=== PATIENT | male | born 1965 | race Caucasian/White ===

== ENCOUNTER 2018-04-09 05:56 | Outpatient (CLI) | payer BC ==
[~2018-04-09] VITALS: Ht 177.8 cm; Wt 93.9 kg
== END 2018-04-09 10:34 ==
LOC: PREOP 05:56
PROVIDERS: ATTEND Internal Medicine
DX: Z01.818 Encounter for other preprocedural examination (principal); Z12.11 Encounter for screening for malignant neoplasm of colon

== ENCOUNTER 2018-04-12 07:31 | Day surgery (SDC) | payer BC ==
--- NOTE | 2018-04-11 06:45 | HISTORY AND PHYSICAL ---
DATE OF SERVICE: COLONOSCOPY H AND P. HISTORY OF PRESENT ILLNESS: He did not have any kind of medical record number, so I suspect he has not been seen here before but the patient is a 52-year-old white male, referred by Dr. Odom, for his first screening colonoscopy. He is deemed to be of average risk as he reports no history of GI bleeding and has no family history for colon cancer that he is aware of. He reports that he feels well and is taking no medication. PAST SURGICAL HISTORY: He has no past surgical history. FAMILY HISTORY: Father of complications from an [place] at the age of 60. Mother is still living at the age of 84, has had stroke. SOCIAL HISTORY: He is employed with history of moderate alcohol consumption and no past smoking history. 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 PHYSICAL EXAMINATION: GENERAL: Reveals a well-appearing white male, who appears to be in no acute distress. VITAL SIGNS: Initial blood pressure was 140/100, repeated 130/90. HEENT: Unremarkable. Sclerae are nonicteric. NECK: Revealed no JVD, adenopathy or bruits. CHEST: Clear to auscultation. Oral cavity reveals a Mallampati class 3 oropharyngeal configuration without erythema or exudate. CARDIOVASCULAR: Reveals a regular rate and rhythm without murmur, S3 or S4. ABDOMEN: Soft, supple without mass, organomegaly or tenderness. Bowel sounds are positive. No tenderness is noted. EXTREMITIES: Reveal no cyanosis, clubbing or edema. ASSESSMENT: The patient was set up for screening colonoscopy on 04/12. Prep instructions with Suprep kit were given and questions were answered. I thank you for the referral of this pleasant gentleman. Job ID: [id number] DocumentID: [id number] Dictated Date: 04/05/2018 11:19:55 Longshore Equipment Operator Date: 04/05/2018 11:48:20 Dictated By: MARLENA BARRY MD
[~2018-04-12] VITALS: Ht 177.8 cm; Wt 93.9 kg
[2018-04-12] MEDS ORDERED: D5 LR IV SOLUTION 1,000 ML IV ONE (07:38)
[2018-04-12] MEDS ORDERED: D5 LR IV SOLUTION 1,000 ML IV STA (07:42)
[2018-04-12] MEDS ORDERED: LIDOCAINE JELLY 2% (XYLOCAINE) 5 ML TUBE MM PRN (07:45)
[2018-04-12] MEDS ORDERED: MIDAZOLAM 2 MG/2 ML (VERSED) VIAL IVP PRN (07:45)
[2018-04-12 07:51] VITALS: BP 165/96
--- NOTE | 2018-04-12 08:10 | Pre-Op Note & Conscious Sedat ---
Pre-Operative Progress Note H&P Reviewed The H&P was reviewed, patient examined and no changes noted. Date H&P Reviewed: Apr 12, 2018 Time H&P Reviewed: 08:10 Conscious Sedation Pre-Proced ASA Class: 2 Airway Mallampati Classification: ([place] appropriate class) I. II. III, IV Lungs Heart ASA score ASA 1: a normal healthy patient ASA 2: a patient with a mild systemic disease (mid diabetes, controlled hypertension, obesity ASA 3: a patient with a severe systemic disease that limits activity (angina , COPD, prior Myocardial infarction) ASA 4: a patient with an incapacitating disease that is a constant threat to life (CHF, renal failure) ASA 5: a moribund patient not expected to survive 24 hrs. (ruptured aneurysm) ASA 6: a declared brain patient whose organs are being harvested. For emergent operations, add the letter E after the classification Grade 3 Sedation Plan: Analgesia, Amnesia, Plan communicated to team members, Discussed options with patient/fam, Discussed risks with patient/fam Note The patient is an appropriate candidate to undergo the planned procedure, sedation, and anesthesia. The patient immediately re-assessed prior to indication. MARLENA BARRY MD Apr 12, 2018 08:10
[2018-04-12] MEDS ORDERED: LIDOCAINE JELLY 2% (XYLOCAINE) 5 ML TUBE ONE (08:27)
[2018-04-12] MEDS ORDERED: MIDAZOLAM 2 MG/2 ML (VERSED) VIAL ONE (08:27)
[2018-04-12] MEDS ORDERED: fentaNYL INJECTION 100 MCG/2 ML AMP ONE (08:27)
[2018-04-12] MEDS: fentaNYL INJECTION 100 MCG/2 ML AMP IVP PRN ×2 (08:39→08:43)
[2018-04-12 09:30] VITALS: BP 131/90
[2018-04-12 09:45] VITALS: BP 130/94
[2018-04-12 09:50] VITALS: BP 130/94
--- NOTE | 2018-04-12 15:37 | OPERATIVE REPORT ---
DATE OF SERVICE: 04/12/2018 COLONOSCOPY SUMMARY INDICATION FOR THE PROCEDURE: Screening colonoscopy. The patient was placed in left lateral decubitus position. Prior to doing the colonoscopy, digital rectal evaluation was performed. Anal sphincter tone was normal and the perianal reflex is intact. The prostate is mildly enlarged, anodular and nontender to digital inspection. Digital inspection of the anal canal and distal rectal vault were unremarkable. The colonoscope was then inserted into the rectum under direct visualization advanced to the cecum. The cecum was identified by identification of the ileocecal valve, cecal strap and appendiceal orifice. Photographic documentation was obtained. Careful inspection was made as the colonoscope was withdrawn. The patient tolerated the procedure well. FINDINGS: There is no evidence for internal or external hemorrhoids. The rectum was unremarkable. A diminutive 2 mm sessile distal sigmoid polyp was present and it was subsequently photographed and biopsied and ablated with no subsequent blood loss. Remainder of the sigmoid colon, descending colon, splenic flexure, transverse colon, hepatic flexure, ascending colon and cecum were unremarkable. ASSESSMENT: 1. One diminutive distal sigmoid polyp was present. It was ablated and submitted for histopathology with no blood loss. This was otherwise normal colonoscopy of the cecum. We would advocate consideration for repeat screening colonoscopy in 10 years as the patient reports no family history for colon cancer. 2. Digital rectal evaluation is compatible with mild benign prostatic hypertrophy. Job ID: [id number] DocumentID: [id number] Dictated Date: 04/12/2018 09:17:43 River Tester Date: 04/12/2018 15:36:47 Dictated By: MARLENA BARRY MD [facility]
== END 2018-04-12 09:50 | disposition home or self-care (01) ==
LOC: ENDO 07:31
PROVIDERS: ATTEND Internal Medicine
DX: Z12.11 Encounter for screening for malignant neoplasm of colon (principal); K63.5 Polyp of colon; N40.0 Benign prostatic hyperplasia without lower urinary tract symptoms
CPT/HCPCS: 88305